=== PATIENT | female | born 2000 | race Caucasian/White ===

== ENCOUNTER 2022-08-23 16:16 | Emergency (ER) | payer MEDICAID ==
[~2022-08-23] VITALS: Ht 170.2 cm; Wt 136.0 kg
[2022-08-23 16:19] VITALS: BP 142/71
[2022-08-23] MEDS ORDERED: ACETAMINOPHEN 325MG TABLET PO ONE (21:00)
[2022-08-23] MEDS ORDERED: IBUP-2030 MT (23:07)
[2022-08-23] MEDS ORDERED: ACET-2708 MT (23:07)
== END 2022-08-23 23:20 | disposition home or self-care (01) ==
LOC: ER 16:16
DX: R51.9 Headache, unspecified (principal); J45.909 Unspecified asthma, uncomplicated
CPT/HCPCS: 71045; 72040; 81025; 99284